=== PATIENT | female | born 1970 | race Hispanic/Latino ===

== ENCOUNTER 2017-10-14 08:53 | Day surgery (SDC) | payer MEDICARE ==
[2017-10-13 13:08] VITALS: BP 99/59
[2017-10-13 13:30] LABS: CREATININE 0.8 mg/dL (0.5-1.5)
[~2017-10-14] VITALS: Ht 165.1 cm; Wt 62.6 kg
[2017-10-14] VITALS (19 sets, daily range): BP systolic 118–149; BP diastolic 65–83
[~2017-10-14 08:53] MED LIST: MIRT30TA6 PO
[2017-10-14] MEDS ORDERED: LACTATED RINGERS 1000ML 1,000 ML IV ONE (09:09)
[2017-10-14] MEDS ORDERED: SUCCINYLCHOLINE 200MG/10ML SYR ONE (10:07)
[2017-10-14] MEDS ORDERED: CEFAZOLIN SODIUM 1 GM VIAL ONE (10:07)
[2017-10-14] MEDS ORDERED: LIDOCAINE PF 2% 5ML ABBOJECT ONE (10:07)
[2017-10-14] MEDS ORDERED: ONDANSETRON HCL 4 MG/2 ML VIAL ONE ×2 (10:07→10:38)
[2017-10-14] MEDS ORDERED: DEXAMETHASONE SOD PHOSPHATE 10MG/ML 1ML VIAL ONE (10:07)
[2017-10-14] MEDS ORDERED: NEOSTIGMINE METHYLSULFATE 1MG/ML IV ONE (10:07)
[2017-10-14] MEDS ORDERED: GLYCOPYRROLATE 0.2 MG/ML 5 ML VIAL ONE (10:07)
[2017-10-14] MEDS ORDERED: PROPOFOL 10 MG/ML 20ML VIAL IV ONE (10:08)
[2017-10-14] MEDS ORDERED: FENTANYL CITRATE PF 50 MCG/1 ML 5ML AMP IV ONE (10:08)
[2017-10-14] MEDS ORDERED: MIDAZOLAM HCL 1 MG/ML 2ML VIAL ONE (10:08)
[2017-10-14] MEDS ORDERED: DEXAMETHASONE SOD PHOSPHATE 4 MG/ML 1ML VIAL ONE (10:37)
[2017-10-14] MEDS ORDERED: FENTANYL CITRATE PF 50 MCG/1 ML 2ML VIAL ONE ×2 (11:15→12:04)
[2017-10-14] MEDS ORDERED: MEPERIDINE-PF 25 MG/ML SYG ONE (12:39)
[2018-01-03] MEDS ORDERED: TYL3 PO (17:11)
[2018-01-03] MEDS ORDERED: CLON2TAB4 PO (17:11)
[2018-01-03] MEDS ORDERED: ALPR0.5T PO (17:23)
== END 2017-10-14 15:00 | disposition home or self-care (01) ==
LOC: DAH 08:53
DX: S63.052A Subluxation of other carpometacarpal joint of left hand, initial encounter (principal); S63.045A Dislocation of carpometacarpal joint of left thumb, initial encounter; M18.12 Unilateral primary osteoarthritis of first carpometacarpal joint, left hand; F32.9 Major depressive disorder, single episode, unspecified; F41.9 Anxiety disorder, unspecified; X58.XXXA Exposure to other specified factors, initial encounter; Y93.89 Activity, other specified; Y92.89 Other specified places as the place of occurrence of the external cause; Y99.8 Other external cause status; Z98.890 Other specified postprocedural states
CPT/HCPCS: 25670; 25800; 36415; 76000; 82565; 84703; 93005; A4606; A4649; C1713 ×2; J0330; J0690; J1100 ×2; J2001; J2175; J2250; J2405 ×2; J2704; J2710; J3010 ×3; J3490; J7120; Q4051

== ENCOUNTER 2018-01-04 10:45 | Day surgery (SDC) | payer OTHER, MEDICARE ==
[2018-01-03 17:14] VITALS: BP 115/63
[2018-01-03 17:29] LABS: BASOPHILS % (AUTO) 0.5 % (0.0-5.0); EOSINOPHILS % (AUTO) 1.6 % (0.0-8.0); HEMATOCRIT 42.5 % (36-48); LYMPHOCYTES % (AUTO) 28.1 % (21.0-51.0); MEAN CORPUSCULAR HEMOGLOBIN 31.8 pg (27.0-33.0); MEAN CORPUSCULAR HGB CONC 35.4 g/dL (32.0-36.0); MONOCYTES % (AUTO) 7.9 % (3.0-13.0); NEUTROPHILS % (AUTO) 61.9 % (40.0-77.0); PLATELET COUNT (AUTO) 353 K/uL (130-400); RED BLOOD CELL COUNT(AUTO) 4.72 MIL/uL (4.00-5.50); RED CELL DISTRIBUTION WIDTH 13.2 % (11.0-15.5); WHITE BLOOD COUNT (AUTO) 8.7 K/uL (4.8-10.8)
[2018-01-03 17:32] LABS: APPEARANCE,URINE Clear (CLEAR); BILIRUBIN,URINE Negative (NEGATIVE); COLOR,URINE Yellow (YELLOW); GLUCOSE, URINE (UA) Negative (NEGATIVE); KETONES,URINE Negative (NEGATIVE); LEUKOCYTE ESTERASE ,URINE Negative (NEGATIVE); NITRATE,URINE Negative (NEGATIVE); OCCULT BLOOD,URINE Negative (NEGATIVE); PROTEIN,URINE Negative (NEGATIVE)
[2018-01-03 17:34] LABS: POTASSIUM 3.5 mmol/L (3.5-5.1)
[2018-01-03 17:39] LABS: INR 0.92 (0.85-1.15); PARTIAL THROMBOPLASTIN TIME 25.3 SEC (26.3-35.5); PROTHROMBIN TIME 9.7 SEC (9.6-11.6)
[2018-01-04] VITALS (18 sets, daily range): BP systolic 103–139; BP diastolic 68–89
[~2018-01-04] VITALS: Ht 166.4 cm; Wt 60.9 kg
[~2018-01-04 10:45] MED LIST changes: +ALPR0.5T PO; -MIRT30TA6 PO; +TYL3 PO
[2018-01-04] MEDS: CEFAZOLIN SODIUM 1 GM VIAL IVP SCH ×2 (11:30→12:13)
[2018-01-04] MEDS ORDERED: LACTATED RINGERS 1000ML 1,000 ML IV ONE (11:33)
[2018-01-04] MEDS ORDERED: ONDANSETRON HCL 4 MG/2 ML VIAL ONE (12:14)
[2018-01-04] MEDS ORDERED: LIDOCAINE PF 2% 5ML ABBOJECT ONE (12:14)
[2018-01-04] MEDS ORDERED: DEXAMETHASONE SOD PHOSPHATE 10MG/ML 1ML VIAL ONE (12:14)
[2018-01-04] MEDS ORDERED: GLYCOPYRROLATE 0.2 MG/ML 5 ML VIAL ONE (12:14)
[2018-01-04] MEDS ORDERED: MIDAZOLAM HCL 1 MG/ML 2ML VIAL ONE (12:15)
[2018-01-04] MEDS ORDERED: FENTANYL CITRATE PF 50 MCG/1 ML 2ML VIAL ONE (12:15)
[2018-01-04] MEDS ORDERED: PROPOFOL 10 MG/ML 20ML VIAL IV ONE (12:15)
[2018-01-04] MEDS ORDERED: MEPERIDINE-PF 50 MG/ML SYG ONE (13:26)
[2018-01-04] MEDS ORDERED: KETOROLAC TROMETHAMINE 30MG/ML ONE (13:35)
[2018-01-04] MEDS ORDERED: DiphenhydrAMINE HCL 50 MG/ML VIAL ONE (15:14)
== END 2018-01-04 15:50 | disposition home or self-care (01) ==
LOC: DAH 10:45
DX: S63.052A Subluxation of other carpometacarpal joint of left hand, initial encounter (principal); X58.XXXA Exposure to other specified factors, initial encounter; Y93.9 Activity, unspecified; Y92.89 Other specified places as the place of occurrence of the external cause; Y99.9 Unspecified external cause status; F41.9 Anxiety disorder, unspecified; F32.9 Major depressive disorder, single episode, unspecified; M19.90 Unspecified osteoarthritis, unspecified site; R06.02 Shortness of breath
CPT/HCPCS: 20680; 36415; 71045; 73140; 80051; 81003; 85025; 85610; 85730; 88300; 93005; A4218; A4649; A6223; A6446; J0690; J1100; J1200; J1885; J2001; J2175; J2250; J2405; J2704; J3010; J3490; J7120 ×2

== ENCOUNTER 2018-02-16 22:32 | Emergency (ER) | payer OTHER, MEDICARE | END 2018-02-16 23:51 | disposition home or self-care (01) | LOC: EDH 22:32 | DX: S63.8X2A Sprain of other part of left wrist and hand, initial encounter (principal); W18.39XA Other fall on same level, initial encounter; Y93.01 Activity, walking, marching and hiking; Y92.098 Other place in other non-institutional residence as the place of occurrence of the external cause; Y99.8 Other external cause status | CPT/HCPCS: 73130 ==

== ENCOUNTER 2018-09-09 08:02 | Day surgery (SDC) | payer OTHER, MEDICARE ==
[2018-09-08 15:11] LABS: BASOPHILS % (AUTO) 0.9 % (0.0-5.0); EOSINOPHILS % (AUTO) 1.1 % (0.0-8.0); HEMATOCRIT 43.4 % (36-48); LYMPHOCYTES % (AUTO) 30.1 % (21.0-51.0); MEAN CORPUSCULAR HEMOGLOBIN 30.1 pg (27.0-33.0); MEAN CORPUSCULAR HGB CONC 33.5 g/dL (32.0-36.0); MEAN CORPUSCULAR VOLUME 89.9 fL (79-99); NEUTROPHILS % (AUTO) 59.9 % (40.0-77.0); PLATELET COUNT (AUTO) 305 K/uL (130-400); RED BLOOD CELL COUNT(AUTO) 4.83 MIL/uL (4.00-5.50); RED CELL DISTRIBUTION WIDTH 13.5 % (11.0-15.5); WHITE BLOOD COUNT (AUTO) 7.7 K/uL (4.8-10.8)
[2018-09-08 15:13] VITALS: BP 117/63
[2018-09-08 15:30] LABS: CREATININE 0.9 mg/dL (0.5-1.5); POTASSIUM 4.4 mmol/L (3.5-5.1)
[~2018-09-09] VITALS: Ht 168.9 cm; Wt 71.7 kg
[2018-09-09] VITALS (13 sets, daily range): BP systolic 100–128; BP diastolic 58–74
[~2018-09-09 08:02] MED LIST changes: +ACET325C5 PO; -ALPR0.5T PO; -TYL3 PO
[2018-09-09] MEDS: CEFAZOLIN SODIUM 1 GM VIAL IVP SCH ×2 (08:30→11:40)
[2018-09-09] MEDS ORDERED: LACTATED RINGERS 1000ML 1,000 ML IV ONE (08:33)
[2018-09-09] MEDS ORDERED: LIDOCAINE PF 2% 5ML ABBOJECT ONE (10:05)
[2018-09-09] MEDS ORDERED: DEXAMETHASONE SOD PHOSPHATE 10MG/ML 1ML VIAL ONE (10:05)
[2018-09-09] MEDS ORDERED: ONDANSETRON HCL 4 MG/2 ML VIAL ONE (10:06)
[2018-09-09] MEDS ORDERED: FENTANYL CITRATE PF 50 MCG/1 ML 2ML VIAL ONE (10:06)
[2018-09-09] MEDS ORDERED: GLYCOPYRROLATE 1 MG/5 ML SYRINGE ONE (10:06)
[2018-09-09] MEDS ORDERED: PROPOFOL 10 MG/ML 20ML VIAL IV ONE (10:06)
[2018-09-09] MEDS ORDERED: NEOSTIGMINE 5MG/5ML SYR IV ONE (10:06)
[2018-09-09] MEDS ORDERED: ROCURONIUM 10MG/1ML SYR 10 MG/ML ML ONE (10:06)
[2018-09-09] MEDS ORDERED: MIDAZOLAM HCL 1 MG/ML 2ML VIAL ONE (10:06)
[2018-09-09] MEDS ORDERED: CEFAZOLIN SODIUM 1 GM VIAL ONE (11:31)
[2018-09-09] MEDS ORDERED: HYDR-4457 PO (13:50)
[2018-09-09] MEDS ORDERED: CEPH500B PO (13:50)
[2018-09-09] MEDS ORDERED: MEPERIDINE-PF 25 MG/ML SYG ONE (14:31)
[2018-09-09] MEDS ORDERED: KETOROLAC TROMETHAMINE 30MG/ML ONE (14:31)
== END 2018-09-09 16:45 | disposition home or self-care (01) ==
LOC: DAH 08:02
PROVIDERS: ATTEND Orthopaedic Surgery
DX: S63.11 Subluxation and dislocation of metacarpophalangeal joint of thumb (principal); X58.XXXD Exposure to other specified factors, subsequent encounter; Z98.890 Other specified postprocedural states; Z79.899 Other long term (current) drug therapy; G89.29 Other chronic pain
CPT/HCPCS: 26850; 36415; 76000; 80048; 84702; 85025; A4649 ×3; A4930 ×2; A6223; A6445; C1713 ×6; C1776; J0690 ×2; J1100; J1885; J2001; J2175; J2250; J2405; J2704; J2710; J3010; J3490; J7120; Q4051

== ENCOUNTER 2019-03-31 07:57 | Day surgery (SDC) | payer OTHER, MEDICARE ==
[2019-03-30 14:43] LABS: BASOPHILS % (AUTO) 1.2 % (0.0-5.0); EOSINOPHILS % (AUTO) 0.8 % (0.0-8.0); HEMATOCRIT 40.8 % (36-48); LYMPHOCYTES % (AUTO) 22.7 % (21.0-51.0); MEAN CORPUSCULAR HEMOGLOBIN 30.4 pg (27.0-33.0); MEAN CORPUSCULAR HGB CONC 34.3 g/dL (32.0-36.0); MEAN CORPUSCULAR VOLUME 88.7 fL (79-99); MONOCYTES % (AUTO) 6.5 % (3.0-13.0); NEUTROPHILS % (AUTO) 68.8 % (40.0-77.0); NUCLEATED RED BLOOD CELLS 0.1 % (0.0-0.19); PLATELET COUNT (AUTO) 334 K/uL (130-400); RED CELL DISTRIBUTION WIDTH 13.5 % (11.0-15.5); WHITE BLOOD COUNT (AUTO) 7.4 K/uL (4.8-10.8)
[2019-03-30 14:49] VITALS: BP 125/62
[2019-03-30 14:59] LABS: POTASSIUM 4.2 mmol/L (3.5-5.1)
[~2019-03-31] VITALS: Ht 162.6 cm; Wt 74.4 kg
[2019-03-31] VITALS (18 sets, daily range): BP systolic 108–143; BP diastolic 66–89
[2019-03-31] MEDS ORDERED: LACTATED RINGERS 1000ML 1,000 ML IV ONE (11:23)
[2019-03-31] MEDS: CEFAZOLIN SODIUM 1 GM VIAL ONE ×2 (11:44→14:35)
[2019-03-31] MEDS ORDERED: MIDAZOLAM HCL 1 MG/ML 2ML VIAL ONE (13:29)
[2019-03-31] MEDS ORDERED: PROPOFOL 10 MG/ML 20ML VIAL IV ONE (13:29)
[2019-03-31] MEDS ORDERED: FENTANYL CITRATE PF 50 MCG/1 ML 2ML VIAL ONE ×2 (13:30→14:06)
[2019-03-31] MEDS ORDERED: LIDOCAINE PF 2% 5ML ABBOJECT ONE (13:39)
[2019-03-31] MEDS ORDERED: PHENYLEPHRINE HCL 10 MG/ML 1ML VIAL IV ONE (13:39)
[2019-03-31] MEDS ORDERED: DEXAMETHASONE SOD PHOSPHATE 4 MG/ML 1ML VIAL ONE ×2 (13:41)
[2019-03-31] MEDS ORDERED: ONDANSETRON HCL 4 MG/2 ML VIAL ONE (13:42)
[2019-03-31] MEDS ORDERED: CEFAZOLIN SODIUM 1 GM VIAL ONE (14:28)
[2019-03-31] MEDS ORDERED: ROPIVACAINE 0.5% 5MG/ML 30ML IJ ONE (15:52)
[2019-03-31] MEDS ORDERED: CEPH500B PO (16:03)
[2019-03-31] MEDS ORDERED: HYDR-4457 PO (16:03)
== END 2019-03-31 17:52 | disposition home or self-care (01) ==
LOC: DAH 07:57
PROVIDERS: ATTEND Orthopaedic Surgery
DX: T84.84XA Pain due to internal orthopedic prosthetic devices, implants and grafts, initial encounter (principal); G89.29 Other chronic pain; M19.042 Primary osteoarthritis, left hand; F41.9 Anxiety disorder, unspecified; I10 Essential (primary) hypertension; F32.9 Major depressive disorder, single episode, unspecified; Z98.890 Other specified postprocedural states; Y83.8 Other surgical procedures as the cause of abnormal reaction of the patient, or of later complication, without mention of misadventure at the time of the procedure
CPT/HCPCS: 25449; 36415; 73130; 80048; 85025; 87070; 87076; 87205; A4649 ×2; A4930; A6223; C1713 ×4; C1776; J0690 ×2; J1100 ×2; J2001; J2250; J2370; J2405; J2704; J2795; J3010 ×2; J7120; Q4051

== ENCOUNTER 2020-03-25 04:12 | Emergency (ER) | payer OTHER, MEDICARE ==
[~2020-03-25 04:12] MED LIST changes: -ACET325C5 PO; +CEPH500B PO; +HYDR-4457 PO
[2020-03-25] MEDS ORDERED: IBUPROFEN 600 MG TABLET ONE (04:52)
[2020-03-25] MEDS ORDERED: ACETAMINOPHEN EXTRA STRENGTH 500 MG TABLET ONE (04:52)
== END 2020-03-25 05:35 | disposition home or self-care (01) ==
LOC: EDH 04:12
DX: S63.592A Other specified sprain of left wrist, initial encounter (principal); S00.83XA Contusion of other part of head, initial encounter; S00.03XA Contusion of scalp, initial encounter; Y08.89XA Assault by other specified means, initial encounter; Y93.89 Activity, other specified; Y92.098 Other place in other non-institutional residence as the place of occurrence of the external cause; Y99.8 Other external cause status
CPT/HCPCS: 73130

== ENCOUNTER → 2020-09-17 | Outpatient (CLI) | payer MEDICARE ==
[~2020-09-17] MED LIST changes: +REGADENOSON 0.4 MG/5 ML PF SYG IVP SCH
== END | disposition home or self-care (01) ==
LOC: SHCH 08:05
PROVIDERS: ATTEND Internal Medicine Cardiovascular Disease
DX: R07.9 Chest pain, unspecified (principal)
CPT/HCPCS: 78452; 93017; 96374; A9500 ×2; J2785